=== PATIENT | male | born 1970 | race African-American/Black ===

== ENCOUNTER 2017-11-19 09:58 | Emergency (ER) | payer SELFPAY ==
[~2017-11-19] VITALS: Ht 182.9 cm; Wt 94.3 kg
[2017-11-19 10:40] VITALS: BP 144/75
--- NOTE | 2017-11-19 12:16 | Emergency Room Report ---
History of Present Illness General Chief Complaint: General Complaint Source: Patient Present Illness HPI Patient presents with 3 weeks of intermittent L arm and hand numbness. Sometimes more positional. Feels pain in his R shoulder area. Also occasionally gets numbness down L leg. Not always associated with arm numbness. No facial symptoms. Has had back problems in the past. Has taken Aleve on occasion with some relief. He also gets swelling in his L hand This is associated with increased work with his hands. He also has carpal tunnel but the numbness recently is down his arm. No constant swelling or edema. Pain is rated 9/10, more with movement of shoulder. No reported trauma, but works with upper extremities. He occasionally also has some neck pain. No fevers, headache, chest pain (per se), dyspnea (although he did report some to RN). No dysuria, change in bowels, abdominal pain. 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 Reviewed Nursing Documentation: PMH: Agreed; PSxH: Agreed Nursing Documentation-PMH Hx Asthma: Yes Review of Systems All Other Systems: negative except mentioned in HPI Physical Exam Vital Signs Date Time Temp Pulse Resp B/P (MAP) Pulse Ox O2 Delivery O2 Flow Rate FiO2 11/19/17 10:04 98.1 100 19 147/70 95 Room Air 98.1 Sp02 EP Interpretation: reviewed, normal General Appearance: well appearing, no apparent distress, GCS 15 Head: normocephalic, atraumatic Eyes: bilateral eye normal inspection, bilateral eye PERRL, bilateral eye EOMI ENT: moist mucus membranes Neck: supple Respiratory: lungs clear, normal breath sounds Cardiovascular #1: regular rate, rhythm Cardiovascular #2: 2+ radial (R) Gastrointestinal: normal inspection, normal bowel sounds, non tender, no mass, non-distended Musculoskeletal: back normal, gait/station normal, normal range of motion, other - no swelling of hands, tender - L shoulder, TTP and with some AROM but latter is full Neurologic: alert, oriented x3, 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 DDX: radiculopathy, shoulder inflammation with radiating pain/numbness, subclavian steel, MS, polyneuropathy, ACS amongst others. Evaluation with EKG, CXR, shoulder xray. Treatment with ibuprofen. His neurologic exam (and history) is against CVA and CT head is not indicated. EKG, no injury or ischemia. CXR normal. L shoulder film with some DJD. Sling applied by tech. Position and neurovasc normal examined by me. Improved with treatment. Discussed that I did not have a definitive diagnosis and that he needed to follow up with PMD. Consideration for CT neck or MRI brain for MS. Also consider evaluation for subclavian steel. Patient stable for outpatient observation and treatment. Chest X-Ray Diagnostic Results Chest X-Ray Diagnostic Results : Chest X-Ray Ordered: Yes Other X-Ray Diagnostic Results Other X-Ray Diagnostic Results : X-Ray ordered: L shoulder Last Vital Signs Date Time Temp Pulse Resp B/P (MAP) Pulse Ox O2 Delivery O2 Flow Rate FiO2 11/19/17 10:40 98.1 11/19/17 10:04 100 19 147/70 95 Room Air Status: improved Disposition: HOME, SELF-CARE Condition: Improved Scripts Tramadol Hcl* (ULTRAM*) 50 Mg Tablet 50 MG ORAL Q6H PRN for For Pain, #12 TAB 0 Refills Prov: Dmitriy Deluca M.D. 11/19/17 Ibuprofen* (MOTRIN*) 600 Mg Tablet 600 MG ORAL Q6H PRN for For Pain, #14 TAB Prov: Dmitriy Deluca M.D. 11/19/17 Referrals: NOT CHOSEN TEJAL/,REFERRING (PCP) Dmitriy Deluca M.D. Nov 19, 2017 12:16
[2017-11-19] MEDS ORDERED: TRAMADOL HCL50 MG ORAL (12:24)
[2017-11-19] MEDS ORDERED: IBUPROFEN600 MG ORAL (12:24)
[2017-11-19 12:44] VITALS: BP 141/76
--- NOTE | 2017-11-19 12:53 | Diagnostic Imaging Report ---
Indication: Reason For Exam: CP Technique: 3 views of the left shoulder Comparison: none Findings: No acute fractures. No dislocations. The joint spaces are preserved Impression: Negative
--- NOTE | 2017-11-19 12:53 | Diagnostic Imaging Report ---
Indication: Chest pain Technique: One view of the chest Comparison: No Findings: Lungs and pleural spaces are clear. Heart size is normal Impression: No acute process
== END 2017-11-19 12:40 | disposition home or self-care (01) ==
LOC: EMR 10:24
DX: M25.512 Pain in left shoulder (principal); R20.0 Anesthesia of skin; M79.89 Other specified soft tissue disorders; J45.909 Unspecified asthma, uncomplicated
CPT/HCPCS: 71045; 93005; 99284